=== PATIENT | female | born 1930 | race Two or more races ===

== ENCOUNTER 2018-09-28 00:29 | Inpatient (IN) | payer MEDICARE, OTHER ==
[~2018-09-28] VITALS: Ht 157.5 cm; Wt 47.0 kg
[2018-09-30 06:56] VITALS: BP 143/63
== END 2018-09-30 11:40 | disposition home or self-care (01) | DRG 640 ==
LOC: ED 00:45 → EDIP 03:39 → 5SO 04:37 → 3NE 15:41
PROVIDERS: ADMIT Internal Medicine; ATTEND Internal Medicine
PROC: 0T9B70Z Drainage of Bladder with Drainage Device, Via Natural or Artificial Opening (ICD-10-PCS; principal; 2018-09-28)
DX: E86.0 Dehydration (principal); N17.0 Acute kidney failure with tubular necrosis; F03.91 Unspecified dementia, unspecified severity, with behavioral disturbance; E11.65 Type 2 diabetes mellitus with hyperglycemia; E87.2 Acidosis
CPT/HCPCS: 36415; 70450; 71045; 80048; 80053; 80061; 81003; 82140; 82550; 82962; 83036; 83605; 83735; 84100; 84439; 84443; 84484; 85025; 87040; 93005; 96365; 99285; G0378; J0696; J1644; J1815; J7030